=== PATIENT | female | born 1995 | race Caucasian/White ===

== ENCOUNTER 2023-08-29 12:36 | Outpatient (CLI) | payer BC, SELFPAY ==
[2023-08-29 13:01] LABS: Basophils Percent Auto 0.9 % (0.2-1.2); Eosinophils Absolute Auto 0.1 K/mm3 (0-0.3); Eosinophils Percent Auto 1.9 % (0-4.4); Hematocrit 41.4 % (37.0-47.0); Hemoglobin 13.1 g/dL (12.0-15.0); Lymphocytes Absolute Auto 1.05 K/mm3 (0.9-3.2); Mean Corpuscular HGB Conc 31.6 g/dl (32-36); Mean Corpuscular Hemoglobin 28.8 pg (26-34); Mean Platelet Volume 9.6 fl (7.4-10.4); Monocytes Absolute Auto 0.2 K/mm3 (0.1-0.6); Monocytes Percent Auto 7.5 % (2.6-8.5); Neutrophils Absolute Auto 1.8 K/mm3 (1.3-6.7); Neutrophils Percent Auto 56.7 % (45.5-73.1); Platelet Count Result 213 k/mm3 (150-375); Red Blood Count 4.55 M/mm3 (4.2-5.4); Red Cell Distribution Width 12.4 % (11.5-14.5); White Blood Count 3.2 K/mm3 (4.5-10.0)
[2023-08-29 16:30] LABS: Alanine Aminotransferase 15 U/L (6-35); Albumin Level 4.6 g/dL (3.5-5.1); Alkaline Phosphatase 44 U/L (38-126); Aspartate Amino Transferase 23 U/L (14-36); Bilirubin,Total 0.4 mg/dL (0.2-1.3)
[2023-08-29 16:53] LABS: Immunoglobulin A 187 mg/dL (70-400); Immunoglobulin G 1041 mg/dL (700-1600); Immunoglobulin M 174 mg/dL (40-230)
[2023-08-31 13:07] LABS: EVB DNA,QN PCR Not Detected Log cps/mL; Epstein Barr Virus PCR Not Detected copies/mL; Source Whole Blood
== END 2023-08-29 12:37 | disposition home or self-care (01) ==
LOC: ANHLAB 12:42
PROVIDERS: Nurse Practitioner Family; Visit Provider Internal Medicine Hematology & Oncology
DX: D72.819 Decreased white blood cell count, unspecified (principal)
CPT/HCPCS: 36415; 80076; 82784; 85025; 86038; 88184

== ENCOUNTER 2023-09-16 07:34 | Outpatient (CLI) | payer BC, SELFPAY ==
--- NOTE | ~2023-09-16 | US_ITS ---
EXAMINATION: US soft tissue head and neck DATE: 09/16/2023 09:09 INDICATION: Enlarged lymph node. Leukopenia. TECHNIQUE: Multiple grayscale and Doppler ultrasound images of the head and neck were obtained. COMPARISON: None FINDINGS: There are normal superficial lymph nodes in the patient's areas of concern in the left post erior neck and right posterior neck/chest. IMPRESSION: 1. Normal superficial lymph nodes in the patient's areas of concern. Reviewed, dictated and finalized at location E.
--- NOTE | ~2023-09-16 | US_ITS ---
US abdomen complete EXAMINATION: US Abdomen Complete INDICATION: Leukopenia. Lymph node enlargement. PROCEDURE: Realtime High Resolution abdomen ultrasound. COMPARISON: No prior studies for comparison FINDINGS: Gallbladder within normal limits. No gallstones, pericholecystic fluid, gallbladder wall t hickening or biliary dilatation. Common bile duct measures 3 mm. Liver echotexture within normal limits without focal mass. Pancreas within normal limits. Pancreati c tail is obscured by bowel gas. Spleen is unremarkeable. Renal echotexture is within normal limits bilaterally without hydronephrosis, contour deforming mass or renal stone. Right kidney measures 10.1 cm. Left kidney measures 8.9 cm. Visualized aspects of the aorta and IVC are within normal limits. Portal vein is patent. No sonograph ic Nash's sign indicated by the technologist. IMPRESSION: 1: Normal abdominal ultrasound. Reviewed, dictated and finalized at location B.
== END 2023-09-16 07:35 | disposition home or self-care (01) ==
LOC: ANHIMG 07:36
PROVIDERS: PCP Family Medicine; Visit Provider Internal Medicine Hematology & Oncology
DX: R59.9 Enlarged lymph nodes, unspecified (principal); D72.819 Decreased white blood cell count, unspecified
CPT/HCPCS: 76536; 76700

== ENCOUNTER 2024-02-10 08:03 | Outpatient (CLI) | payer OTHER, SELFPAY ==
[2024-02-10 08:25] LABS: Basophils Absolute Auto 0.1 K/mm3 (0.0-0.1); Basophils Percent Auto 1.4 % (0.2-1.2); Eosinophils Absolute Auto 0.1 K/mm3 (0-0.3); Eosinophils Percent Auto 2.3 % (0-4.4); Hematocrit 42.6 % (37.0-47.0); Hemoglobin 13.6 g/dL (12.0-15.0); Immature Granulocyte Absolute 0.01 K/mm3 (0.00-0.031); Immature Granulocyte Percent A 0.2 % (0-0.5); Lymphocytes Absolute Auto 2.02 K/mm3 (0.9-3.2); Lymphocytes Percent Auto 35.8 % (18.3-44.2); Mean Corpuscular HGB Conc 31.9 g/dl (32-36); Mean Corpuscular Hemoglobin 28.3 pg (26-34); Mean Corpuscular Volume 88.8 fl (80-100); Mean Platelet Volume 9.9 fl (7.4-10.4); Monocytes Absolute Auto 0.6 K/mm3 (0.1-0.6); Monocytes Percent Auto 9.8 % (2.6-8.5); Neutrophils Absolute Auto 2.9 K/mm3 (1.3-6.7); Neutrophils Percent Auto 50.5 % (45.5-73.1); Platelet Count Result 266 k/mm3 (150-375); Red Cell Distribution Width 11.9 % (11.5-14.5); White Blood Count 5.6 K/mm3 (4.5-10.0)
[2024-02-10 08:29] LABS: Blood Urea Nitrogen 18 mg/dL (8-26); Carbon Dioxide 24 mmol/L (22-30); Chloride 103 mmol/L (98-109); Estimated Glomerular Filt Rate > 60; Glucose 107 mg/dL (70-105); Ionized Calcium (POC) 1.18 mmol/L (1.11-1.31); Potassium 3.9 mmol/L (3.5-4.9); Sodium 139 mmol/L (138-146)
== END 2024-02-10 08:04 | disposition home or self-care (01) ==
LOC: ANHLAB 08:07
PROVIDERS: Nurse Practitioner Family; PCP Family Medicine; Visit Provider Internal Medicine Hematology & Oncology
DX: D72.819 Decreased white blood cell count, unspecified (principal)
CPT/HCPCS: 36415; 80047; 85025